=== PATIENT | male | born 1960 | race Hispanic/Latino ===

== ENCOUNTER 2018-04-02 08:14 | Outpatient (CLI) | payer MEDICARE | END 2018-04-02 08:15 | disposition home or self-care (01) | LOC: LAB 08:14 ==

== ENCOUNTER 2018-04-17 10:40 | Outpatient (CLI) | payer MEDICARE | END 2018-04-17 10:41 | disposition home or self-care (01) | LOC: RAD 10:40 | DX: G35 Multiple sclerosis (principal) ==

== ENCOUNTER → 2018-07-08 | Outpatient (CLI) | payer MEDICARE | LOC: LAB 07:52 ==